=== PATIENT | male | born 1960 | race African-American/Black ===

== ENCOUNTER 2016-11-01 11:56 | Emergency (ER) | payer OTHER ==
[~2016-11-01] VITALS: Wt 95.5 kg
[~2016-11-01 11:56] MED LIST: CIPR500T4 PO; CLOT30CR24 TOP; DOXY100T20 PO
[2016-11-01] MEDS ORDERED: CEFTRIAXONE 250 MG INJ IM STA (12:18)
[2016-11-01] MEDS ORDERED: AZITHROMYCIN 250 MG TAB PO STA (12:18)
[2016-11-01] MEDS ORDERED: LIDOCAINE 1% (MDV) 20 ML INJ SC ONE (12:30)
[2016-11-01 12:38] LABS: URINE BLOOD (Dip) POC Negative (NEGATIVE)
--- NOTE | 2016-11-01 13:04 | ERA ---
ER Documentation Chief Complaint Date/Time DATE: 11/01/16 Chief Complaint Requesting treatment for STD HPI The patient is a 56-year-old male who presents to the Emergency Department with complaint of dysuria and possible STI exposure. The patient reports that over the weekend he had sexual intercourse with a new female partner. He notes that they did use condoms as barrier protection, but that the condom broke during sexual intercourse. Several days later, he developed symptoms of dysuria and mild burning at the urethral opening. That same day, he was informed by this new sexual partner, that her recent ex-boyfriend had informed her that he had tested positive for a sexually transmitted infection (Gonorrhea/chlamydia), and therefore she informed him of the need to be treated. He denies any fevers, sweats, chills, nausea or vomiting. Denies testicular pain, testicular swelling , urethral discharge. Denies abdominal pain. Denies flank pain. No other complaints at this time. ROS All systems reviewed and are negative except as per history of present illness. Medications Home Meds Active Scripts Ciprofloxacin Hcl* (Ciprofloxacin Hcl*) 500 Mg Tablet, 500 MG PO BID for 10 Days , TAB Prov:URBAN MATTHEWS. [employer] 07/22/15 Clotrimazole* (Clotrimazole* AF) 1% - 30 Gm Cream.gm., 1 APPLIC TOP BID for 14 Days, TUB Prov:URBAN MATTHEWS. [employer] 07/22/15 Doxycycline Hyclate* (Doxycycline Hyclate*) 100 Mg Tablet.dr, 100 MG PO BID for 10 Days, TAB Prov:TREMAINE KNOWLES PA-C 05/14/15 Allergies Allergies: Coded Allergies: No Known Allergy (Unverified , 11/01/16) PMhx/Soc History of Surgery: Yes (hernia surgery) Hx Miscellaneous Medical Probl: Yes (acid reflux) Hx Substance Use: Yes Physical Exam Vitals Vital Signs Date Time Temp Pulse Resp B/P Pulse Ox O2 Delivery O2 Flow Rate FiO2 11/01/16 12:02 98.9 82 20 130/72 99 Physical Exam GENERAL: Well-developed, well-nourished, in no acute distress HEENT: Head is normocephalic, atraumatic. No scleral pallor or icterus. Pupils equal, round and reactive to light. Conjunctiva pink. Moist mucous membranes. No pharyngeal erythema or exudates. NECK: Supple. RESPIRATORY: Lungs are clear to auscultation bilaterally. Equal breath sounds. Normal expiratory effort. CARDIOVASCULAR: Regular rate and rhythm. S1 and S2 normal. . GASTROINTESTINAL: Abdomen is soft, nontender, and nondistended. No guarding, no rebound tenderness. Normal bowel sounds. FLANK: No CVA tenderness, no mass or swelling. BACK: No midline tenderness. GENITOURINARY: Normal external genitalia. Penis normal, testes descended bilaterally. Circumcised. No abnormal discharge, no bleeding. No lesions No masses. EXTREMITIES: No clubbing, cyanosis, or edema. Normal skin perfusion. Moving all extremities. No focal swelling or erythema. NEUROLOGIC: The patient is alert, awake, and oriented x 3. No focal neurologic deficits. INTEGUMENT: Skin is clean, dry and intact. No rashes, lesions or petechiae present. PSYCHIATRIC: Appropriate; Cooperative. Results 24 hrs Laboratory Tests Test 11/01/16 12:43 Bedside Urine pH (LAB) 6.0 Bedside Urine Protein (LAB) 1+ Bedside Urine Glucose (UA) Negative Bedside Urine Ketones (LAB) Negative Bedside Urine Blood Negative Bedside Urine Nitrite (LAB) Negative Bedside Urine Leukocyte Esterase (L Negative Current Medications Medications (Trade) Dose Ordered Sig/Michele Route PRN Reason Start Time Stop Time Status Last Admin Dose Admin Azithromycin (Zithromax) 1,000 mg ONCE STAT PO 11/01/16 12:18 11/01/16 12:21 DC 11/01/16 12:39 Ceftriaxone Sodium (Rocephin) 250 mg ONCE STAT IM 11/01/16 12:18 11/01/16 12:21 DC 11/01/16 12:40 Lidocaine (Xylocaine 1% (Mdv) 20 ml) 20 ml ONCE ONCE SC 11/01/16 12:30 11/01/16 12:31 DC 11/01/16 12:40 Procedures/MDM This is a 56-year-old male presenting to the emergency department with dysuria and urethral burning s/p recent sexual intercourse with a new female partner. During sexual intercourse, the condom broke. Several days later, he was informed by his female partner, that one of her more recent partners was diagnosed with a STI. The patient had no tenderness to palpation on physical examination, with no evidence of edema, rashes, lesions or hydrocele. No nitrites, no urine leukocyte esterase were noted on the urinalysis ordered. Urine culture sent. GC/Chlamydia testing sent. After rest the patient reports no new complaints. Upon my review and interpretation of the patient's presentation and overall ER course, I believe that the patient's symptoms are most consistent with acute urethritis. The patient was treated in the ED with 250 mg IM Rocephin and 1 gram of Azithromycin, for STD prophylaxis. GC/Chlamydia screen was sent out for evaluation. The patient is in stable condition and therefore can be discharged home with strict return precautions for signs of deteriorating or worsening condition. The patient is instructed to follow up with his primary care provider within 2-3 days for reevaluation and further management or return to the ER sooner for any worsening symptoms. I shared my medical decision making and plan with the patient and he verbally understands and agrees with the plan for further observation and care as an outpatient. At the time of discharge, all questions were answered. Departure Diagnosis: Primary Impression: Urethritis Condition: Stable Patient Instructions: If You Think You Have an STD, Urethritis in Men, Urethritis, Male (Gc Vs. Chlam), What Are Sexually Transmitted Diseases (STDs)? Additional Instructions: Call your primary care doctor TOMORROW for an appointment during the next 2-3 days.See the doctor sooner or return here if your condition worsens before your appointment time. MARLEY ESTRADA PA-C Nov 01, 2016 13:03
== END 2016-11-01 13:18 | disposition home or self-care (01) ==
LOC: FTE 11:56
DX: N34.2 Other urethritis (principal)
CPT/HCPCS: 81003; 87086; 87591; 96372; J0696; Z7502; Z7610

== ENCOUNTER 2017-11-06 16:57 | Emergency (ER) | END 2017-11-06 19:50 | disposition home or self-care (01) ==